=== PATIENT | female | born 1960 | race Caucasian/White ===

== ENCOUNTER 2018-06-20 11:46 | Emergency (ER) | payer OTHER ==
[~2018-06-20] VITALS: Ht 165.1 cm; Wt 59.0 kg
--- NOTE | ~2018-06-20 | EKG ---
[address] [place] [address] ELECTROCARDIOGRAM REPORT Name: FRANCISCO GLYNN Room #: DEP GENE Witt#: [id number] Admission: 06/20/18 Attend Phys: Discharge: 06/20/18 Date of : 58 Report #: [id number] THIS REPORT FOR: //name// [facility] ED Test Date: 2018-06-20 Test Time: 12:05:16 Pat Name: FRANCISCO GLYNN Department: Room: Gender: F [employer] Pilot: Vivian MARTIN RN : 1960 Requested By: Britney Gomez Order Number: [id number] MD: Clay Perez Measurements Intervals Eros Rate: 94 P: 64 [place]: 130 QRS: 21 QRSD: 105 T: 63 QT: 370 QTc: 463 Interpretive Statements Sinus rhythm Probable left atrial enlargement No previous ECG available for comparison Electronically Signed On 06-21-2018 11:03:32 CDT by Clay Perez [email or web address] <ELECTRONICALLY SIGNED> By: Clay Perez MD 06/21/18 1103 1205 1205 Clay Perez MD /EPI
[2018-06-20 12:13] LABS: ABSOLUTE NEUTROPHILS 4.9 thou/uL (1.4-8.2); BASOPHILS 1.2 % (0.0-2.0); EOSINOPHILS 1.6 % (0.0-3.0); HEMATOCRIT 45.2 % (37.0-47.0); HEMOGLOBIN 15.4 gm/dL (12.0-15.0); LYMPHOCYTES 26.2 % (24.0-44.0); MCHC 34.1 g/dL (28.0-37.0); MCV 93.9 fL (80.0-100.0); MONOCYTES 9.2 % (1.0-8.0); PLATELET COUNT 232 thou/uL (150-400); POLYS 61.8 % (36.0-66.0); RBC 4.81 mil/uL (4.20-5.00); WBC 7.9 thou/uL (4.0-11.0)
[2018-06-20 12:22] LABS: ANION GAP 9 mmol/L (7-16); BUN 12 mg/dL (7-18); CALCIUM 9.6 mg/dL (8.5-10.1); CHLORIDE 101 mmol/L (98-107); CO2 28 mmol/L (21-32); CREATININE 0.7 mg/dL (0.6-1.0); GLUCOSE 107 mg/dL (74-106); POTASSIUM 3.8 mmol/L (3.5-5.1); SODIUM 138 mmol/L (136-145)
[2018-06-20 12:30] LABS: ALBUMIN 4.4 g/dL (3.4-5.0); SGOT 22 U/L (15-37); SGPT 26 U/L (30-65); TOTAL BILIRUBIN 0.5 mg/dL (<0.1-1.0); TOTAL PROTEIN 8.1 g/dL (6.4-8.2); TROPONIN-I <0.06 ng/mL (<0.06)
== END 2018-06-20 14:34 | disposition home or self-care (01) ==
LOC: ER 11:46
PROVIDERS: Student in an Organized Health Care Education/Training Program
DX: I10 Essential (primary) hypertension (principal); Z87.891 Personal history of nicotine dependence